=== PATIENT | female | born 1985 | race African-American/Black ===

== ENCOUNTER 2022-08-26 14:46 | Outpatient (CLI) | payer OTHER ==
[2022-08-26 15:24] LABS: Appearance,Urine Clear (Clear); Bilirubin,Urine Negative (Negative); Blood,Urine Negative (Negative); Color,Urine Yellow; Glucose,Urine (UA) Negative (Negative); Ketones,Urine Negative (Negative); Leukocyte Esterase,Urine Negative (Negative); Nitrite,Urine Negative (Negative); PH, Urine 7.5 (5.0-8.0); Protein,Urine Negative (Negative); Specific Gravity,Urine 1.008 (1.001-1.035); Urobilinogen,Urine <2.0 mg/dL (<2.0)
[2022-08-26 15:39] LABS: Creatinine,Urine Random 52.1 mg/dL; Protein/Creatinine Ratio,Urine 0.307
[2022-08-26 15:49] LABS: Basophils % (A) 0 %; Eosinophils # (A) 0.5 k/uL (0-0.7); Eosinophils % (A) 7 %; HCT 33.2 % (34.0-46.0); HGB 11.6 gm/dL (11.4-16.0); Lymphocytes % (A) 16 %; MCH 31.6 pg (25.0-35.0); MCHC 35.1 g/dL (31.0-37.0); MCV 89.9 fL (80.0-100.0); Mean Platelet Volume 9.1; Monocytes # (A) 0.3 k/uL (0-1.0); Monocytes % (A) 5 %; Neutrophils # (A) 4.3 k/uL (1.3-7.7); Neutrophils % (A) 70 %; Platelet Count 208 k/uL (150-450); RBC 3.69 m/uL (3.80-5.40); RDW 13.5 % (11.5-15.5); WBC 6.2 k/uL (3.8-10.6)
--- NOTE | 2022-08-26 15:53 | US ---
EXAMINATION TYPE: US OB BPP wo non-stress DATE OF EXAM: 08/26/2022 COMPARISON: NONE CLINICAL HISTORY: 36-year-old female BPP, decels in office. TECHNIQUE: Transabdominal (TA). Scoring by the rag cutting machine feeder during real-time assessment. FINDINGS: BPP PARAMETERS: HEART RATE: 153 bpm RHYTHM: Normal RANJIT: 17.5 DIAPHRAGM IMAGED: Yes BPP SCORIN. Breathin (1 episode of breathing of 30 second duration in 30 minutes of scanning time) 2. Movement: 2 (at least 3 discrete body movements in 30 minutes) 3. Tone: 2 (1 episode of active flexion/extension of limb) 4. RANJIT: 2 (RANJIT index > 5cm) IMPRESSION: TOTAL SCORE: 8 / 8
[2022-08-26 15:56] LABS: ALT 30 U/L (4-34); AST 28 U/L (14-36); African American GFR (CKD) >90 (>60 ml/min/1.73 sqM); Blood Urea Nitrogen 6 mg/dL (7-17); LDH 406 U/L (313-618); Non-African American GFR(CKD) >90 (>60 ml/min/1.73 sqM); Uric Acid 4.1 mg/dL (3.7-7.4)
[2022-08-26 16:57] VITALS: BP 122/83; PULSE 93; RESP 16; TEMP 97.1
== END 2022-08-26 16:45 | disposition home or self-care (01) ==
LOC: FBPOP 14:46
PROVIDERS: ATTEND Obstetrics & Gynecology
DX: O36.8331 Maternal care for abnormalities of the fetal heart rate or rhythm, third trimester, fetus 1 (principal); Z3A.37 37 weeks gestation of pregnancy
CPT/HCPCS: 59025; 82570; 84156; 82565; 83615; 84450; 84460; 84520; 84550; 85025; 81003; 76819; G0463; 99215

== ENCOUNTER 2022-09-10 06:00 | Inpatient (IN) | payer OTHER ==
[2022-09-10] MEDS ORDERED: LIDOCAINE 0.5% (PF) 5 MG/ML (50 ML SDV) SQ PRN (06:41)
[2022-09-10] MEDS ORDERED: miSOPROStoL 200 MCG TAB PO PRN (06:41)
[2022-09-10] MEDS ORDERED: TERBUTALINE 1 MG/ML VIAL SQ PRN (06:41)
[2022-09-10] MEDS ORDERED: METHYLERGONOVINE 0.2 MG/ML 1 ML AMP IM PRN (06:41)
[2022-09-10] MEDS ORDERED: OXYTOCIN 10 UNIT/ML 1 ML VIAL IM PRN (06:41)
[2022-09-10] MEDS ORDERED: CARBOPROST TROMETHAMINE 250 MCG/ML 1 ML AMP IM PRN (06:41)
[2022-09-10] MEDS ORDERED: TRANEXAMIC ACID IN NACL,ISO-OS 1,000 MG in EMPTY BAG 1 BAG IV PRN (06:41)
[2022-09-10] MEDS ORDERED: OXYTOCIN 30 UNITS/500 ML NS 30 UNIT in SALINE 1 500ML.BAG IV SCH (06:45)
[2022-09-10 06:57] LABS: Basophils % (A) 0 %; Eosinophils # (A) 0.5 k/uL (0-0.7); Eosinophils % (A) 8 %; HCT 32.6 % (34.0-46.0); HGB 11.3 gm/dL (11.4-16.0); Lymphocytes # (A) 1.5 k/uL (1.0-4.8); Lymphocytes % (A) 21 %; MCH 30.9 pg (25.0-35.0); MCHC 34.8 g/dL (31.0-37.0); MCV 88.7 fL (80.0-100.0); Mean Platelet Volume 8.1; Monocytes # (A) 0.5 k/uL (0-1.0); Monocytes % (A) 7 %; Neutrophils # (A) 4.3 k/uL (1.3-7.7); Neutrophils % (A) 61 %; Platelet Count 273 k/uL (150-450); RBC 3.67 m/uL (3.80-5.40); RDW 13.7 % (11.5-15.5)
[2022-09-10] MEDS: LACTATED RINGERS 1,000 ML IV SCH ×4 (07:02→20:43)
[2022-09-10] MEDS: BUTORPHANOL 1 MG/ML 1 ML VIAL IV PRN ×3 (08:10→15:29)
--- NOTE | 2022-09-10 09:20 | P.HPOB ---
History of Present Illness H&P Date: 09/10/22 Chief Complaint: Elective Induction of Labor Ms. Washington is a 36 year old at 39 weeks 1 day with EDC of 09/16/21 who presents to L&D for elective induction of labor. has been complicated by finding of polyhydramnios which resolved with the latest ultrasound, with an RANJIT of 17.5. The fetus is also suspected to be large for gestational age in the 95%ile of weight. The fetus is estimated to be approximately 9 pounds. Obstetric history is significant for 2 full term vaginal deliveries that were uncomplicated, largest infant weight 8 pounds and 3 ounces. Her last delivery was in 2005. She also had one early miscarriage that did not require D&C. Past surgical history is significant for cholecystectomy. Past medical history includes asthma, anxiety, and sickle cell trait. The father of the baby was testing for sickle cell trait and was negative. Maternal laboratory workup shows: blood type A positive, Rubella immune, VDRL non-reactive, HBsAg non-reactive, HIV negative, 1 hr GTT of 118, and Group B Strep negative. Past Medical History Past Medical History: Asthma History of Any Multi-Drug Resistant Organisms: None Reported Past Surgical History: Cholecystectomy Past Psychological History: Anxiety, Panic Disorder Smoking Status: Never smoker Past Alcohol Use History: Rare Past Drug Use History: None Reported Medications and Allergies Home Medications Medication Instructions Recorded Confirmed Type Albuterol Inhaler [Ventolin Hfa 1 puff INHALATION TID 08/26/22 09/10/22 History Inhaler] Omeprazole [PriLOSEC] 40 mg PO DAILY 08/26/22 09/10/22 History Vit No.179/Iron/Folic 1 each PO DAILY 08/26/22 09/10/22 History [ Tablet] Sertraline [Zoloft] 50 mg PO DAILY 08/26/22 09/10/22 History Allergies Allergy/AdvReac Type Severity Reaction Status Date / Time No Known Allergies Allergy Verified 09/10/22 06:38 Exam Vital Signs Temp Pulse Resp BP 09/10/22 06:37 96.9 F L 86 16 134/79 Intake and Output 09/09/22 09/10/22 09/10/22 22:59 06:59 14:59 Other: Weight 107.048 kg Focused exam is performed. This is a pleasant appearing in no apparent distress. Cervical exam is fingertip dilation, 10% effacement, and -3 station. heart tones are 120 baseline/moderate variability/+accelerations/no decelerations Results Result Diagrams: 09/10/22 06:43 Abnormal Lab Results - Last 24 Hours (Table) 09/10/22 Range/Units 06:43 RBC 3.67 L (3.80-5.40) m/uL Hgb 11.3 L (11.4-16.0) gm/dL Hct 32.6 L (34.0-46.0) % Assessment and Plan Assessment: 36 year old at 39 weeks, 1 day here for elective induction of labor Plan: - cooks catheter placed through the cervix without difficulty, 60 cc of normal saline inserted into each schumacher balloon - low-dose oxytocin to a maximum of 6 IUs until cooks catheter removed - IV stadol 1mg q2h as needed for cramping and contractions unless variability is less than moderate - NPO, mIVF Dispo: Continuous electronic monitoring, close monitoring of the mother. Time with Patient: Greater than 30
[2022-09-10] MEDS ORDERED: ROPIVACAINE 5 MG/ML 20 ML AMPULE ONE (19:29)
[2022-09-10] MEDS ORDERED: fentaNYL (PF) 50 MCG/ML 5 ML AMP ONE (19:29)
[2022-09-10] MEDS ORDERED: SODIUM CHLORIDE 0.9% 100 ML BAG ONE (19:29)
[2022-09-11] MEDS ORDERED: CITRIC ACID-SODIUM CITRATE 15 ML CUP PO ONE (03:33)
[2022-09-11] MEDS ORDERED: fentaNYL (PF) 50 MCG/ML 2 ML AMP ONE (03:40)
[2022-09-11] MEDS ORDERED: LIDOCAINE 2% INJ 20 MG/ML (2 ML VIAL) ONE (03:40)
[2022-09-11] MEDS ORDERED: ONDANSETRON 4 MG/2 ML VIAL ONE (03:40)
[2022-09-11] MEDS ORDERED: DEXAMETHASONE SOD PHOS (MDV) 100 MG/10 ML VIAL ONE (03:40)
[2022-09-11] MEDS ORDERED: MORPHINE SULFATE (PF) 0.3 MG/0.3 ML SYR ONE (03:40)
[2022-09-11] MEDS ORDERED: OXYTOCIN 30 UNITS/500 ML NS BAG IV ONE (03:40)
[2022-09-11] MEDS ORDERED: KETOROLAC 15 MG/ML 1 ML VIAL ONE (03:40)
[2022-09-11] MEDS ORDERED: AZITHROMYCIN 500 MG in SODIUM CHLORIDE 0.9% 250 ML IVPB STA (03:41)
[2022-09-11] MEDS ORDERED: diphenhydrAMINE 25 MG CAP PO PRN (05:33)
[2022-09-11] MEDS ORDERED: diphenhydrAMINE 50 MG/ML 1 ML VIAL IVP PRN ×2 (05:33)
[2022-09-11] MEDS ORDERED: METOCLOPRAMIDE 5 MG/ML 2 ML VIAL IVP PRN (05:33)
[2022-09-11] MEDS ORDERED: NALOXONE 0.4 MG/ML 1 ML VIAL IV PRN ×2 (05:33→08:00)
[2022-09-11] MEDS ORDERED: diphenhydrAMINE 50 MG CAP PO PRN (05:33)
[2022-09-11] MEDS ORDERED: ZOLPIDEM 5 MG TAB PO PRN (05:33)
[2022-09-11] MEDS ORDERED: ONDANSETRON 4 MG/2 ML VIAL IVP PRN (05:33)
[2022-09-11] MEDS ORDERED: OXYTOCIN 30 UNITS/500 ML NS 30 UNIT in SALINE 1 500ML.BAG IV SCH (05:45)
--- NOTE | 2022-09-11 06:01 | P.OP ---
Date of Procedure: 09/11/22 Preoperative Diagnosis: 1. Term intrauterine at 39 weeks and 2 days 2. Persistent Category II Heart Tones Remote From Delivery 3. Suspected Large for Gestational Age Infant Postoperative Diagnosis: 1. Term intrauterine at 39 weeks and 2 days 2. Persistent Category II Heart Tones Remote From Delivery 3. Direct Occiput Posterior Presentation 4. Foul-smelling amniotic fluid 5. Large for gestational age Procedure(s) Performed: Primary Lower Transverse Section Implants: None Anesthesia: epidural Surgeon: Francine Heard Coverage Specialist #1: Nuha Moran Estimated Blood Loss (ml): 790 Urine output (ml): 500 (malena-colored) Pathology: other (placenta) Condition: stable Disposition: floor Indications for Procedure: This is a 36 year old [id number] at 39 weeks and 1 day being electively induced. The induction started with a cooks catheter, which worked well and the patient progressed to 5 centimeters of dilation. AROM was undertaken for clear fluid. Th e patient progressed further to 6 cm. Epidural anesthesia was obtained which was not satisfactorily controlling the patient's pain. She was having difficulty coping with the contractions. The fetus then began to have repetitive late decelerations despite position changes and fluid boluses. Given that the patient was still remote from delivery, the recommendation was made for section for maternal and well-being. The risks, benefits, and alternatives were discussed including risk of bleeding (patient willing to accept blood transfusion in the case of life-threatening bleeding), infection, and damage to surrounding structures including bladder, bowel, and ureters. The patient understood the risks and desires to proceed with section. Operative Findings: Live male infant, apgars 4/6/7 at 1, 5, and 10 minutes respectively. weight 9 pounds 4 ounces. Foul-smelling amniotic fluid was noted at the time of delivery. Uterus was grossly unremarkable. Bilateral fallopian tubes were normal appearing. Left ovary with 2 cm simple cyst noted. Right ovary within normal limits. Description of Procedure: The patient was taken back to the operating room where epidural anesthesia was found to be adequate. Ancef and Azithromycin were given for infection prophylaxis. She was prepared and draped in the dorsal supine position with a leftward tilt. A Pfannenstiel skin incision was made with the scalpel. The incision was carried down to the fascia. The fascia was incised and extended laterally with Beard scissors. The superior aspect of the fascia was grasped with the Ct clamps. The underlying rectus muscle was dissected off sharply with Beard scissors. In a similar fashion, the inferior aspect of the fascia was el evated with Ct clamps and the rectus muscle and pyramidalis were dissected off. Excellent hemostasis was achieved with the bovie. The rectus muscle was in the midline down to the level of the pubic symphysis. Pre- peritoneal fatty tissue was bluntly dissected to expose the peritoneum. The peritoneum was found to be free of adherent bowel and entered sharply with Metzenbaum scissors. The peritoneal incision was extended superiorly and inferiorly to the bladder reflection with good visualization of the bladder. The bladder blade was inserted and vesicouterine peritoneum was identified. Intraabdominal survey revealed scant, clear peritoneal fluid and the thinned-out lower uterine segment. The vesicouterine peritoneum was opened with scissors and the bladder flap was developed. The bladder blade was repositioned to keep the bladder out of the operative field. The lower uterine segment was incised with a scalpel. Foul odor was noted with the remaining amniotic fluid inside of the uterus. The uterine incision was extended bluntly with lateral and upward traction. The fetus was in direct occiput posterior position. The head was deeply engaged in the pelvis and required the assistance of a hand from below to elevated out of the pelvis. Special attention paid to avoid using the uterine incision as a fulcrum. Gentle fundal pressure was applied once the head was brought into the incision. The was delivered with no difficulty. The mouth and nose were suctioned with a bulb. The cord was clamped and cut. The was handed off to the pediatric team. IV oxytocin was initiated to facilitate uterine contractions. The placenta was delivered intact with manual massage of uterine fundus. The uterus was then exteriorized and the inside of the uterus was gently wiped with a lap sponge to assure complete removal of placental membranes. The uterine incision was closed with a 0-Vicryl suture in a running locked fashion. A second imbricating layer with 0-Vicryl was placed for hemostasis. The left ovary had a 2cm simple cyst. Otherwise, the bilateral tubes and ovaries were noted to be normal. The uterus, tubes, and ovaries were then gently returned to the abdominal cavity. The blood clots and fluid were wiped out of the abdomen and pelvis with moist laparotomy sponges. The uterine incision was reinspected and excellent hemostasis was noted. The fascial layer was closed with a 0-Vicryl suture. The subcutaneous layer was reapproximated with 2-0 Plain Gut. The skin was closed with a running 4-0 Monocryl suture. The patient tolerated the procedure well. All the counts were correct times two. The patient was taken to the recovery room in a stable condition.
[2022-09-11] MEDS: LACTATED RINGERS 1,000 ML IV SCH ×4 (07:13→20:30)
[2022-09-11] MEDS: SENNOSIDES-DOCUSATE SODIUM 1 EACH TAB PO SCH ×2 (07:51→20:37)
[2022-09-11] MEDS: ACETAMINOPHEN TAB 500 MG TAB PO SCH ×2 (07:52→18:08)
[2022-09-11] MEDS ORDERED: MORPHINE SULFATE 2 MG/ML SYRINGE IVP PRN (08:00)
[2022-09-11] MEDS: KETOROLAC 15 MG/ML 1 ML VIAL IVP SCH ×2 (12:38→20:36)
[2022-09-11] MEDS: SIMETHICONE 80 MG CHEWABLE PO PRN (20:36)
[2022-09-12] MEDS: ACETAMINOPHEN TAB 500 MG TAB PO SCH ×5 (00:21→22:51)
[2022-09-12] MEDS: LACTATED RINGERS 1,000 ML IV SCH (00:22)
[2022-09-12] MEDS: KETOROLAC 15 MG/ML 1 ML VIAL IVP SCH ×2 (00:23→01:58)
[2022-09-12] MEDS: SIMETHICONE 80 MG CHEWABLE PO PRN (07:28)
[2022-09-12] MEDS: SENNOSIDES-DOCUSATE SODIUM 1 EACH TAB PO SCH ×2 (07:28→19:51)
[2022-09-12 07:39] LABS: Basophils % (A) 0 %; Eosinophils # (A) 0.4 k/uL (0-0.7); Eosinophils % (A) 4 %; HCT 30.3 % (34.0-46.0); HGB 10.3 gm/dL (11.4-16.0); Lymphocytes # (A) 1.3 k/uL (1.0-4.8); Lymphocytes % (A) 12 %; MCH 30.6 pg (25.0-35.0); MCHC 33.9 g/dL (31.0-37.0); MCV 90.2 fL (80.0-100.0); Mean Platelet Volume 8.3; Monocytes # (A) 0.5 k/uL (0-1.0); Monocytes % (A) 5 %; Neutrophils # (A) 8.8 k/uL (1.3-7.7); Neutrophils % (A) 78 %; Platelet Count 233 k/uL (150-450); RBC 3.35 m/uL (3.80-5.40); RDW 13.9 % (11.5-15.5); WBC 11.3 k/uL (3.8-10.6)
--- NOTE | 2022-09-12 08:43 | P.PNOBGPC ---
Subjective - Subjective Principal diagnosis: Primary Lower Transverse Section Interval history: The patient is doing well this morning and had no acute events overnight. She had some chills overnight but feels better now. She reports minimal lochia, passing flatus, voiding without difficulty, ambulating, and eating/drinking without nausea or vomiting. She is her infant without difficulty. She denies chest pain, shortness of breathing, fevers overnight. She denies pain or swelling in the legs. Patient reports: Reports appetite normal, Reports voiding normally, Reports pain well controlled, Reports ambulating normally : doing well, in NICU, nursing well Objective - Vital Signs Latest vital signs: Vital Signs Temp Pulse Resp BP Pulse Ox 09/12/22 07:35 99.2 F 91 16 102/64 100 09/12/22 04:00 98.3 F 77 16 120/72 09/12/22 00:00 98.2 F 88 17 118/65 09/11/22 20:00 98.2 F 86 16 117/71 100 09/11/22 18:54 16 09/11/22 16:00 97.4 F L 85 16 103/60 97 09/11/22 13:00 16 98 09/11/22 12:43 98.0 F 87 16 127/63 98 09/11/22 11:01 16 Intake and Output 09/11/22 09/12/22 09/12/22 22:59 06:59 14:59 Output Total 600 500 Balance -600 -500 Output: Urine 600 500 Other: # Voids 1 3 1 - Exam Extremities: Present: normal Abdomen: Present: normal appearance, soft Incision: Present: normal, dry, intact Uterus: Present: normal, firm - Labs Labs: Abnormal Lab Results - Last 24 Hours (Table) 09/12/22 Range/Units 06:40 WBC 11.3 H (3.8-10.6) k/uL RBC 3.35 L (3.80-5.40) m/uL Hgb 10.3 L (11.4-16.0) gm/dL Hct 30.3 L (34.0-46.0) % Neutrophils # 8.8 H (1.3-7.7) k/uL Assessment and Plan Assessment: 36 year old POD#1 s/p primary LTCS 2/2 nrFHTs remote from delivery at 39 weeks Plan: 1. Postoperative/ - patient meeting all postoperative and milestones appropriately. Continue to monitor. 2. Viable male infant - in the nursery getting antibiotics for suspected chorioamnionitis, patient desires circumcision when infant is cleared by peds Dipso: Anticipate discharge home on POD#2 or 3. Continue current management.
[2022-09-12] MEDS: IBUPROFEN 600 MG TAB PO SCH ×2 (10:36→19:51)
--- NOTE | 2022-09-12 11:09 | P.PN ---
Progress Note - Text 09/12/22 634am 36-year-old female status post with spinal Duramorph. Patient seen and evaluated for postop pain control, she has a VAS of 1 with no complains of nausea vomiting or pruritus. Patient doing well
--- NOTE | 2022-09-12 12:34 | P.DS ---
Providers Date of admission: 09/10/22 06:12 Expected date of discharge: 09/13/22 Attending physician: Francine Heard MD Primary care physician: Stated None Hospital Course: This is a 36 year old at 39 weeks who was being electively induced. was complicated by suspected LGA infant and polyhydramnios. A cooks catheter was placed and oxytocin was started. The patient progressed to 5cm dilation and AROM was undertaken. The patient then had arrest of dilation at 6cm and the fetus began to have non-reassuring heart tones. C/S was recommended for and maternal well being. During the C/S foul amniotic fluid and odor was noted during delivery of the . went to the NICU for IV antibiotics for presumed chorioamnionitis. Patient met all postoperative milestones and was doing well. She will be discharged home. She will follow up in the office in 2 weeks for incision check. Discussed postoperative restrictions of no heavy lifting more than 15 pounds for 6 weeks and pelvic rest for 6 weeks. Discussed that we recommend contraception to prevent short interval pregnancies and patient will consider her optiosn. Assessment: 36 y/o postoperative from primary C/S 2/2 nrFHTs remote from delivery Patient Condition at Discharge: Good Plan - Discharge Summary Discharge Rx Participant: No New Discharge Prescriptions: New Acetaminophen Tab [Tylenol] 650 mg PO Q6H PRN #30 tab PRN Reason: Mild Pain (Scale 1 To 3) Ibuprofen [Motrin] 600 mg PO Q6HR PRN #30 tab PRN Reason: Mild Pain (Scale 1 To 3) oxyCODONE HCL 5 mg PO Q6HR PRN 3 Days #12 tab PRN Reason: Breakthrough Pain No Action Sertraline [Zoloft] 50 mg PO DAILY Omeprazole [PriLOSEC] 40 mg PO DAILY Albuterol Inhaler [Ventolin Hfa Inhaler] 1 puff INHALATION TID Vit No.179/Iron/Folic [ Tablet] 1 each PO DAILY Discharge Medication List Albuterol Inhaler [Ventolin Hfa Inhaler] 1 puff INHALATION TID 08/26/22 [History] Omeprazole [PriLOSEC] 40 mg PO DAILY 08/26/22 [History] Vit No.179/Iron/Folic [ Tablet] 1 each PO DAILY 08/26/22 [History] Sertraline [Zoloft] 50 mg PO DAILY 08/26/22 [History] Acetaminophen Tab [Tylenol] 650 mg PO Q6H PRN #30 tab 09/12/22 [Rx] Ibuprofen [Motrin] 600 mg PO Q6HR PRN #30 tab 09/12/22 [Rx] oxyCODONE HCL 5 mg PO Q6HR PRN 3 Days #12 tab 09/12/22 [Rx] Follow up Appointment(s)/Referral(s): Francine Heard MD [STAFF PHYSICIAN] - 2 Weeks Patient Instructions/Handouts: Depression (DC), Your Baby (DC), How to Increase Your Milk Supply (DC), How to Tell if Your Baby is Getting Enough Breast Milk (DC), Bleeding (DC), (DC) Activity/Diet/Wound Care/Special Instructions: No lifting heavier than 15 pounds for [address] while taking narcotic medications. Pelvic rest for 6 weeks. Otherwise, activity as tolerated.
[2022-09-13] MEDS: IBUPROFEN 600 MG TAB PO SCH ×4 (02:53→23:16)
[2022-09-13] MEDS: ACETAMINOPHEN TAB 500 MG TAB PO SCH ×3 (05:58→18:45)
[2022-09-13] MEDS: SENNOSIDES-DOCUSATE SODIUM 1 EACH TAB PO SCH ×2 (08:39→19:45)
[2022-09-13 10:48] LABS: Basophils % (A) 0 %; Eosinophils # (A) 0.7 k/uL (0-0.7); Eosinophils % (A) 8 %; HCT 28.3 % (34.0-46.0); HGB 9.6 gm/dL (11.4-16.0); Lymphocytes % (A) 12 %; MCH 30.7 pg (25.0-35.0); MCHC 33.7 g/dL (31.0-37.0); Mean Platelet Volume 8.3; Monocytes # (A) 0.4 k/uL (0-1.0); Monocytes % (A) 5 %; Neutrophils # (A) 6.1 k/uL (1.3-7.7); Neutrophils % (A) 74 %; Platelet Count 227 k/uL (150-450); RBC 3.11 m/uL (3.80-5.40); RDW 13.8 % (11.5-15.5); WBC 8.3 k/uL (3.8-10.6)
[2022-09-14] MEDS: ACETAMINOPHEN TAB 500 MG TAB PO SCH ×4 (02:07→20:09)
[2022-09-14] MEDS: IBUPROFEN 600 MG TAB PO SCH ×3 (06:55→23:14)
[2022-09-14] MEDS: SIMETHICONE 80 MG CHEWABLE PO PRN ×2 (06:58→18:49)
--- NOTE | 2022-09-14 10:02 | P.PNOBGPC ---
Subjective - Subjective Principal diagnosis: Day 3 Interval history: Plan to discharge yesterday was held secondary to the infant remaining in the nursery. She reports she is feeling well, pain improved with the addition of stool softeners. Lochia is decreasing. Patient reports: Reports appetite normal, Reports voiding normally, Reports pain well controlled, Reports ambulating normally, Denies nauseated : doing well, nursing well Objective - Vital Signs Latest vital signs: Vital Signs Temp Pulse Resp BP Pulse Ox 09/13/22 23:51 98.8 F 105 H 18 133/89 09/13/22 16:00 98.4 F 98 16 127/77 100 Intake and Output 09/13/22 09/14/22 09/14/22 22:59 06:59 14:59 Other: # Voids 1 - Exam Extremities: Present: normal. Absent: edema Abdomen: Present: normal appearance, soft. Absent: tenderness Incision: Present: intact. Absent: erythematous Uterus: Present: normal, firm. Absent: tenderness - Labs Labs: Abnormal Lab Results - Last 24 Hours (Table) 09/13/22 Range/Units 10:36 RBC 3.11 L (3.80-5.40) m/uL Hgb 9.6 L (11.4-16.0) gm/dL Hct 28.3 L (34.0-46.0) % Assessment and Plan (1) Chorioamnionitis Current Visit: Yes Status: Acute Code(s): O41.1290 - CHORIOAMNIONITIS, UNSP TRIMESTER, NOT APPLICABLE OR UNSP SNOMED Code(s): 46559184 (2) Non-reassuring electronic monitoring tracing Current Visit: Yes Status: Acute Code(s): O36.8390 - MATERN CARE FOR ABNLT FETL HRT RATE OR RHYM, UNSP TRI, UNSP SNOMED Code(s): 120773374 (3) S/P primary low transverse Current Visit: Yes Status: Acute Code(s): Z98.891 - HISTORY OF UTERINE SCAR FROM PREVIOUS SURGERY SNOMED Code(s): 735002270 Plan: Postop day 3 status post primary low transverse section for nonreassuring heart tones and chorioamnionitis. Vital signs are stable. remains in special care nursery for ongoing treatment. We'll hold discharge for the patient until the is cleared for discharge. Routine care otherwise.
[2022-09-14] MEDS: SENNOSIDES-DOCUSATE SODIUM 1 EACH TAB PO SCH ×2 (15:42→20:27)
[2022-09-15] MEDS: ACETAMINOPHEN TAB 500 MG TAB PO SCH ×3 (01:17→09:14)
[2022-09-15] MEDS: IBUPROFEN 600 MG TAB PO SCH ×3 (01:19→15:59)
[2022-09-15] MEDS: SENNOSIDES-DOCUSATE SODIUM 1 EACH TAB PO SCH (09:15)
[2022-09-15 09:23] VITALS: TEMP 98.2
--- NOTE | 2022-09-15 15:19 | P.PNOBGPC ---
Subjective - Subjective Principal diagnosis: Primary Lower Transverse Section Interval history: Patient doing well, no complaints, no acute events overnight. Pain well controlled, ambulating normally, eating and drinking normally without nausea or vomiting, passing flatus, no pain/swelling in legs. without difficulty. Patient reports: Reports appetite normal, Reports voiding normally, Reports pain well controlled, Reports ambulating normally [place]: doing well Objective - Vital Signs Latest vital signs: Vital Signs Temp Pulse Resp BP Pulse Ox 09/15/22 08:00 98.2 F 88 16 122/75 99 09/15/22 00:00 98.6 F 102 H 18 135/82 09/14/22 15:38 98.9 F 94 16 118/74 100 Intake and Output 09/15/22 09/15/22 09/15/22 06:59 14:59 22:59 Other: # Voids 1 2 - Exam Extremities: Present: normal Abdomen: Present: normal appearance, soft Incision: Present: normal, dry, intact Uterus: Present: normal, firm Assessment and Plan Assessment: 36 year old POD#4 s/p primary LTCS 2/2 nrFHTs remote from delivery at 39 weeks Plan: 1. Postoperative/ - patient meeting all postoperative and milestones appropriately. 2. Viable male - will circumcise today, plan is for discharge of this evening. Dipso: Discharge home today.
[2022-09-15 16:20] VITALS: BP 144/76; PULSE 90; RESP 18
== END 2022-09-15 17:42 | disposition home or self-care (01) | DRG 786 ==
LOC: 4FBP 06:12
PROVIDERS: ADMIT Obstetrics & Gynecology; ATTEND Obstetrics & Gynecology
PROC: 10907ZC Drainage of Amniotic Fluid, Therapeutic from Products of Conception, Via Natural or Artificial Opening (ICD-10-PCS; 2022-09-11)
PROC: 3E033VJ Introduction of Other Hormone into Peripheral Vein, Percutaneous Approach (ICD-10-PCS; 2022-09-11)
PROC: 4A0HXCZ Measurement of Products of Conception, Cardiac Rate, External Approach (ICD-10-PCS; 2022-09-11)
PROC: 10D00Z1 Extraction of Products of Conception, Low, Open Approach (ICD-10-PCS; principal; 2022-09-11 03:47)
DX: O76 Abnormality in fetal heart rate and rhythm complicating labor and delivery (principal); O41.1230 Chorioamnionitis, third trimester, not applicable or unspecified; O62.0 Primary inadequate contractions; J45.909 Unspecified asthma, uncomplicated; O36.63X0 Maternal care for excessive fetal growth, third trimester, not applicable or unspecified; D64.9 Anemia, unspecified; F41.0 Panic disorder [episodic paroxysmal anxiety]; O61.0 Failed medical induction of labor; O99.52 Diseases of the respiratory system complicating childbirth; O99.02 Anemia complicating childbirth; D57.3 Sickle-cell trait; O99.344 Other mental disorders complicating childbirth; Z37.0 Single live birth; Z3A.39 39 weeks gestation of pregnancy; Z79.899 Other long term (current) drug therapy
CPT/HCPCS: 85025; 86850; 86900; 86901; 88307

== ENCOUNTER 2023-04-04 16:06 | Emergency (ER) | payer OTHER ==
--- NOTE | 2023-04-04 17:17 | XR ---
EXAMINATION TYPE: XR chest 2V DATE OF EXAM: 04/04/2023 COMPARISON: None INDICATION: Cough and wheeze, history of asthma TECHNIQUE: Frontal and lateral views of the chest are obtained. FINDINGS: The heart size is normal. The pulmonary vasculature is normal. The lungs are clear. IMPRESSION: 1. No acute pulmonary process.
--- NOTE | 2023-04-04 17:34 | ED ---
General Adult HPI - General Chief complaint: ENT Stated complaint: Sore Throat Time Seen by Provider: 04/04/23 16:12 Source: patient, RN notes reviewed Mode of arrival: ambulatory Limitations: no limitations - History of Present Illness Initial comments: 37-year-old female presents emergency Department with chief complaint of sore throat, cough, nausea that started yesterday. She reports a low-grade fever last night. States that her children have had the same symptoms. Denies vomiting, urinary symptoms. PMH includes asthma for which she uses a rescue inhaler. - Related Data Home Medications Medication Instructions Recorded Confirmed Albuterol Inhaler [Ventolin Hfa 1 puff INHALATION TID 08/26/22 09/10/22 Inhaler] Omeprazole [PriLOSEC] 40 mg PO DAILY 08/26/22 09/10/22 Vit No.179/Iron/Folic 1 each PO DAILY 08/26/22 09/10/22 [ Tablet] Sertraline [Zoloft] 50 mg PO DAILY 08/26/22 09/10/22 Previous Rx's Medication Instructions Recorded Acetaminophen Tab [Tylenol] 650 mg PO Q6H PRN #30 tab 09/12/22 Ibuprofen [Motrin] 600 mg PO Q6HR PRN #30 tab 09/12/22 oxyCODONE HCL [Roxicodone] 5 mg PO Q6HR PRN 3 Days #12 tab 09/12/22 Allergies Allergy/AdvReac Type Severity Reaction Status Date / Time No Known Allergies Allergy Verified 04/04/23 16:10 Review of Systems ROS Statement: Those systems with pertinent positive or pertinent negative responses have been documented in the HPI. ROS Other: All systems not noted in ROS Statement are negative. Past Medical History Past Medical History: Asthma History of Any Multi-Drug Resistant Organisms: None Reported Past Surgical History: Section, Cholecystectomy Past Psychological History: Anxiety, Panic Disorder Smoking Status: Never smoker Past Alcohol Use History: Rare Past Drug Use History: None Reported General Exam Limitations: no limitations General appearance: alert, in no apparent distress Head exam: Present: atraumatic, normocephalic, normal inspection Eye exam: Present: normal appearance, PERRL, EOMI. Absent: scleral icterus, conjunctival injection, periorbital swelling ENT exam: Present: normal exam, mucous membranes moist Neck exam: Present: normal inspection, full ROM. Absent: tenderness, meningismus, lymphadenopathy Respiratory exam: Present: normal lung sounds bilaterally, wheezes. Absent: respiratory distress, rales, rhonchi, stridor Cardiovascular Exam: Present: regular rate, normal rhythm, normal heart sounds. Absent: systolic murmur, diastolic murmur, rubs, gallop, clicks GI/Abdominal exam: Present: soft, normal bowel sounds. Absent: distended, tenderness, guarding, rebound, rigid Extremities exam: Present: normal inspection, full ROM, normal capillary refill. Absent: tenderness, pedal edema, joint swelling, calf tenderness Back exam: Present: normal inspection Neurological exam: Present: alert, oriented X3 Psychiatric exam: Present: normal affect, normal mood Skin exam: Present: warm, dry, intact, normal color. Absent: rash Course Vital Signs 04/04/23 04/04/23 16:07 17:55 Temperature 98.3 F 98.1 F Pulse Rate 88 74 Respiratory 16 17 Rate Blood Pressure 119/82 110/55 O2 Sat by Pulse 98 98 Oximetry Medical Decision Making - Medical Decision Making Was pt. sent in by a medical professional or institution (, PA, TECHNICAL SUPPORT DIRECTOR, urgent care, hospital, or fdc...) When possible be specific @ -No Did you speak to anyone other than the patient for history (EMS, parent, family, police, friend...)? What history was obtained from this source @ -No Did you review nursing and triage notes (agree or disagree)? Why? @ -I reviewed and agree with nursing and triage notes Were old charts reviewed (outside hosp., previous admission, EMS record, old EKG, old radiological studies, urgent care reports/EKG's, fdc records)? Report findings @ -No old charts were reviewed Differential Diagnosis (chest pain, altered mental status, abdominal pain women, abdominal pain men, vaginal bleeding, weakness, fever, dyspnea, syncope, headache, dizziness, GI bleed, back pain, seizure, CVA, palpatations, mental health, musculoskeletal)? @ -Strep pharyngitis, viral pharyngitis, viral URI, gastroenteritis, this list is not all-inclusive EKG interpreted by me (3pts min.). @ -none X-rays interpreted by me (1pt min.). @ -Chest x-ray showed no evidence of pneumonia CT interpreted by me (1pt min.). @ -None done U/S interpreted by me (1pt. min.). @ -None done What testing was considered but not performed or refused? (CT, X-rays, U/S, labs)? Why? @ -None What meds were considered but not given or refused? Why? @ -None Did you discuss the management of the patient with other professionals (professionals i.e. DrCecil, PA, TECHNICAL SUPPORT DIRECTOR, lab, RT, psych nurse, adoption social worker, broaching machine set up operator, teacher, program officer, correctional case records supervisor)? Give summary @ -No Was smoking cessation discussed for >3mins.? @ -No Was critical care preformed (if so, how long)? @ -No Were there social determinants of health that impacted care today? How? (Homele ssness, low income, unemployed, alcoholism, drug addiction, transportation, low edu. Level, literacy, decrease access to med. care, intermediate, rehab)? @ -No Was there de-escalation of care discussed even if they declined (Discuss DNR or withdrawal of care, Hospice)? DNR status @ -No What co-morbidities impacted this encounter? (DM, HTN, Smoking, COPD, CAD, Cancer, CVA, ARF, Chemo, Hep., AIDS, mental health diagnosis, sleep apnea, morbid obesity)? @ -None Was patient admitted / discharged? Hospital course, mention meds given and route, prescriptions, significant lab abnormalities, going to OR and other pertinent info. @ -Discharged Patient presented to emergency department with chief complaint of nausea, sore throat, cough 2 days. She states hers kids have similar symptoms at home. Covid, influenza, RSV, strep were negative. This x-ray obtained which show no evidence of acute process Patient advised of these findings and that this is likely a viral infection that her and her family are experiencing. Recommended symptomatically treatment with saline rinses for sore throat, Tylenol and Motrin for fever, [id number] cough syrups as needed. Patient agreeable with plan. Patient stable at time of discharge. Case discussed my attending, Dr. Clemente Undiagnosed new problem with uncertain prognosis? @ -No Drug Therapy requiring intensive monitoring for toxicity (Heparin, Nitro, Insulin, Cardizem)? @ -No Were any procedures done? @ -No Diagnosis/symptom? @ -Viral URI Acute, or Chronic, or Acute on Chronic? @ -Acute Uncomplicated (without systemic symptoms) or Complicated (systemic symptoms)? @ -uncomplicated Side effects of treatment? @ -No Exacerbation, Progression, or Severe Exacerbation? @ -No Poses a threat to life or bodily function? How? (Chest pain, [place], [place], pneumonia, PE, COPD, DKA, ARF, appy, cholecystitis, CVA, Diverticulitis, Homicidal, Suicidal, threat to staff... and all critical care pts) @ -No - Lab Data Lab Results 04/04/23 04/04/23 Range/Units 16:45 16:45 Influenza Type A (PCR) Not Detected (Not Detectd) Influenza Type B (PCR) Not Detected (Not Detectd) RSV (PCR) Not Detected (Not Detectd) SARS-CoV-2 (PCR) Not Detected (Not Detectd) Group A Strep (PCR) NOT DETECTED (Not Detectd) Disposition Clinical Impression: Viral syndrome Disposition: HOME SELF-CARE Condition: Stable Instructions (If sedation given, give patient instructions): Strep Throat (ED) Additional Instructions: Utilize salt water gargles, Tylenol and Motrin as needed. Please return to the emergency department for new or worsening symptoms. Is patient prescribed a controlled substance at d/c from ED?: No Referrals: Matti Hutchins MD [Primary Care Provider] - 1-2 days Forms: Work/School Release
[2023-04-04 17:56] VITALS: BP 110/55; PULSE 74; RESP 17; TEMP 98.1
== END 2023-04-04 17:55 | disposition home or self-care (01) ==
LOC: EC 16:06
DX: J06.9 Acute upper respiratory infection, unspecified (principal); Z20.822 Contact with and (suspected) exposure to COVID-19; J45.909 Unspecified asthma, uncomplicated; F41.9 Anxiety disorder, unspecified; Z79.899 Other long term (current) drug therapy; Z90.49 Acquired absence of other specified parts of digestive tract
CPT/HCPCS: 71046; 87636; 87651; 99283

== ENCOUNTER → 2023-07-29 | Outpatient (CLI) | payer OTHER ==
[2023-07-29 15:44] VITALS: BP 119/79; PULSE 87; TEMP 98.1; BMI 39.5
--- NOTE | 2023-07-29 15:54 | P.HPBAR ---
Bariatric H&P - History & Physicial H&P Date: 07/29/23 History & Physicial: Visit/CC: new patient Patient initial contact: Initial weight: Initial weight in pounds: Height: 5 ft 6 in Initial BMI: Last weight: Current weight: 111.13 kg Current weight in pounds: 245.00 Current BMI: 39.5 [place] body weight (based on NIH guidelines): 58.967 kg Excess body weight loss: The patient is a 37 year-old F who presents for Bariatric Assessment. She comes in with troubles with weight loss. This is her highest weight. She had baby with 9 lbs. She was 180 pounds. She was on prescription Wegovy and Adipex. Aunt had weight loss surgery. She has heartburn. No stomach or esophagreal cancer. She does snore sometimes. She has back pain. No knee pain. No ankle pain. She is very active with walking. Her legs hurt with walking. She has trouble breathing. She was not looking into surgery. She gained 15 pounds. Recommend food journal like [employer]. Past Medical History Past Medical History: Asthma, GERD/Reflux History of Any Multi-Drug Resistant Organisms: None Reported Past Surgical History: Section, Cholecystectomy Past Anesthesia/Blood Transfusion Reactions: No Reported Reaction Past Psychological History: Anxiety, Panic Disorder Smoking Status: Former smoker Past Alcohol Use History: Occasional Past Drug Use History: Marijuana Additional Drug Use History / Comment(s): uses marijuana pen Surgical - Exam Vital Signs Temp Pulse BP 98.1 F 87 119/79 07/29/23 15:13 07/29/23 15:13 07/29/23 15:13 Bariatric Checklist Checklist: Plan: Checklist: EGD: 1. Hiatal hernia: 2. H. Pylori: HgbA1c: Vitamin D: Smoking: Former smoker Primary care physician referral: Female at Dr. Hutchins's office Psychiatry clearance: Cardiology clearance: Sleep study: Diet journal: VTE risk score: VTE risk level: Rehab needs at discharge:
== END ==
LOC: BARWHC3 14:39
PROVIDERS: ATTEND Surgery Plastic and Reconstructive Surgery
DX: Z53.9 Procedure and treatment not carried out, unspecified reason (principal)
CPT/HCPCS: 99212

== ENCOUNTER → 2024-12-07 | Outpatient (CLI) | payer OTHER ==
--- NOTE | 2024-12-07 16:08 | MM ---
Reason for Exam: Screening (asymptomatic). Patient History: Menarche at age 14. First Full-Term at age 19. Hormonal Contraceptives for 3 years from age 15 until age 18. Maternal grandmother had breast cancer. Last menstrual period: 12/05/2024 Risk Values: Ariana 5 year model risk: 0.5%. NCI Lifetime model risk: 8.3%. Tissue Density: There are scattered areas of fibroglandular density. Findings: Analyzed By CAD. There is a 7 mm circumscribed nodule approximately 10:00 right breast approximately 10 cm from the nipple that appears very superficial in location. No priors available to assess stability. Targeted ultrasound evaluation recommended. Otherwise, no suspicious microcalcification or other discrete abnormality is seen. Overall Assessment: Incomplete: need additional imaging evaluation, BI-RAD 0 Management: Diagnostic Breast Ultrasound of the right breast. [facility], , 12/07/2024 4:05 PM. Electronically signed and approved by: She Noe M.D. Radiologist
== END | disposition home or self-care (01) ==
LOC: RADMAMWWP 13:15
PROVIDERS: ATTEND Family Medicine
DX: Z12.31 Encounter for screening mammogram for malignant neoplasm of breast (principal); R92.323 Mammographic fibroglandular density, bilateral breasts; Z92.0 Personal history of contraception; Z80.3 Family history of malignant neoplasm of breast
CPT/HCPCS: 77067

== ENCOUNTER → 2024-12-09 | Outpatient (CLI) | payer OTHER ==
--- NOTE | 2024-12-09 15:50 | USB ---
Reason for Exam: Additional evaluation requested from abnormal screening. Patient History: Menarche at age 14. First Full-Term at age 19. Hormonal Contraceptives for 3 years from age 15 until age 18. Maternal grandmother had breast cancer. Risk Values: Ariana 5 year model risk: 0.5%. NCI Lifetime model risk: 8.3%. Technique: Method: Targeted. Prior Study Comparison: 12/07/2024 Bilateral MG screening mammo w CAD, [facility]. Findings: The upper outer quadrant of the right breast, the axilla of the right breast and the retroareolar of the right breast were scanned. Targeted ultrasound upper outer quadrant right breast including scanning of the subareolar region and axilla. There is a nonenlarged lymph node at the 9:00 position, 10 cm from the nipple. This shows slight uniform thickening but no abnormal replacement of the fatty hilum or eccentric cortical thickening. Suspect a prominent but normal intramammary lymph node. Recommend 6 month follow-up to establish stability. This correlates well to the mammographic finding. No other solid or cystic lesion or axillary adenopathy. Overall Assessment: Probably benign, BI-RAD 3 Management: Diagnostic Mammogram of the right breast in 6 months. A clinical breast exam by your physician is recommended on an annual basis and results should be correlated with mammographic findings. This exam should not preclude additional follow-up of suspicious palpable abnormalities. Results were given to the patient verbally at the time of exam. [facility], , 12/09/2024 3:47 PM. Electronically signed and approved by: She Noe M.D. Radiologist
== END | disposition home or self-care (01) ==
LOC: RADUSWWP 15:10
PROVIDERS: ATTEND Family Medicine
DX: R92.8 Other abnormal and inconclusive findings on diagnostic imaging of breast (principal); Z80.3 Family history of malignant neoplasm of breast; Z92.0 Personal history of contraception